=== PATIENT | male | born 1995 | race African-American/Black ===

== ENCOUNTER 2016-11-15 22:20 | Emergency (ER) | payer MEDICAID ==
[~2016-11-15] VITALS: Ht 172.7 cm; Wt 69.0 kg
[2016-11-15] MEDS ORDERED: BACITRACIN ZINC OINT UDPKT TOP ONE (23:00)
[2016-11-15] MEDS ORDERED: TETANUS, DIPHTHERIA, PERTUSSIS VAC/PF 0.5ML (>7YR OLD) IM ONE (23:00)
[2016-11-15] MEDS ORDERED: ACETAMINOPHEN 325MG TABLET PO ONE (23:30)
[2016-11-15 23:45] VITALS: BP 143/77
[2016-11-15] MEDS ORDERED: IBUPROFEN 600MG TABLET PO ONE (23:45)
== END 2016-11-15 23:50 | disposition home or self-care (01) ==
LOC: ER 23:02
DX: S01.01XA Laceration without foreign body of scalp, initial encounter (principal); W22.8XXA Striking against or struck by other objects, initial encounter; Y93.89 Activity, other specified; Y92.89 Other specified places as the place of occurrence of the external cause; Y99.8 Other external cause status
CPT/HCPCS: 12002; 90471; 90715; 99284; Z7610

== ENCOUNTER 2016-11-27 20:14 | Emergency (ER) | payer MEDICAID ==
[~2016-11-27] VITALS: Ht 172.7 cm; Wt 69.0 kg
[2016-11-27 21:16] VITALS: BP 112/65
== END 2016-11-27 23:07 | disposition home or self-care (01) ==
LOC: ER 20:14
DX: Z48.02 Encounter for removal of sutures (principal)
CPT/HCPCS: 99281; Z7610